=== PATIENT | female | born 1990 ===

== ENCOUNTER 2017-01-09 06:18 | Inpatient (IN) | payer MEDICAID ==
[~2017-01-09 06:18] MED LIST: AMOXICILLIN500 M PO; AUGMENTIN 875-1 EAC1 PO; AUGMENTIN875 MG/TA1 PO; FEROSUL325 M1; HYDROCODON-ACE1 EAC7 PO; HYDROXYZINE HCL25 M1; IBUPROFEN200 M1 PO; LORTAB 5-500 T1 EACH PO; MOTRIN800 MG PO; NORCO 5/325 TAB1 TAB PO; PERCOCET 5/3251 TAB PO; PRENA1 CHEW TA1.4 M1; PRENATAL VITAMI1 TAB PO; UNISOM25 MG PO
[2017-01-09 07:19] LABS: BASO % 0.6 % (0-2); BASO ABSOLUTE COUNT 0.1 tho/cmm (0.0-0.2); EOS % 0.7 % (0-7); EOSINOPHIL ABSOLUTE COUNT 0.1 tho/cmm (0.0-0.7); HCT-HEMATOCRIT 24.7 % (34.0-49.0); HGB-HEMOGLOBIN 7.3 gm/dl (12.0-15.5); IMMATURE GRANULOCYTES ABSOLUTE 0.03 tho/cmm (0-0.03); IMMATURE GRANULOCYTES PERCENT 0.4 % (0-0.3); LYMPH % 27.2 % (20-45); LYMPH ABSOLUTE COUNT 2.3 tho/cmm (0.8-4.5); MCH (MEAN CORPUSCULAR HGB) 20.9 pg (28.0-32.0); MCHC MEAN CORPUSCULAR HGB CONC 29.6 % (32.0-36.0); MCV (MEAN CELL VOLUME) 70.6 fl (82.0-96.0); MEAN PLATELET VOLUME 9.8 cmc (9.4-12.4); MONO % 5.6 % (0-12); MONOCYTE ABSOLUTE COUNT 0.5 tho/cmm (0.0-1.2); NEUTROPHIL ABSOLUTE COUNT 5.5 tho/cmm (1.6-8.0); NEUTROPHIL-AUTOMATED 5.5 tho/cmm (1.6-8.0); NEUTROPHILS % 65.5 % (40-80); PLATELET COUNT 195 tho/cmm (150-450); RED CELL DISTRIBUTION WIDTH 21.6 % (12.4-16.4); WHITE BLOOD COUNT 8.4 tho/cmm (4.0-10.0)
[2017-01-12] MEDS ORDERED: PERCOCET 5-3251 EACH PO (21:51)
[2017-01-12] MEDS ORDERED: IBUPROFEN800 M1 PO (21:51)
[2017-01-13] MEDS ORDERED: COLACE100 M1 PO (09:44)
== END 2017-01-13 15:00 | DRG 765 ==
LOC: LDR 06:18 → OBGD 10:00 → OBGE 01-10 17:30
PROVIDERS: Obstetrics & Gynecology; ADMIT Advanced Practice Midwife
PROC: 10D00Z1 Extraction of Products of Conception, Low, Open Approach (ICD-10-PCS; principal; 2017-01-09)
PROC: 30233N1 Transfusion of Nonautologous Red Blood Cells into Peripheral Vein, Percutaneous Approach (ICD-10-PCS; 2017-01-10)
DX: O34.211 Maternal care for low transverse scar from previous cesarean delivery (principal); O98.82 Other maternal infectious and parasitic diseases complicating childbirth; O13.4 Gestational [pregnancy-induced] hypertension without significant proteinuria, complicating childbirth; B95.1 Streptococcus, group B, as the cause of diseases classified elsewhere; Z3A.40 40 weeks gestation of pregnancy; Z37.0 Single live birth; J45.909 Unspecified asthma, uncomplicated; O99.513 Diseases of the respiratory system complicating pregnancy, third trimester; F32.9 Major depressive disorder, single episode, unspecified; O99.343 Other mental disorders complicating pregnancy, third trimester; O77.0 Labor and delivery complicated by meconium in amniotic fluid; O99.02 Anemia complicating childbirth
CPT/HCPCS: J0690; J2175; J2590; J7050; J7121; P9016